=== PATIENT | female | born 1935 | race Caucasian/White ===

== ENCOUNTER 2018-08-13 23:10 | Inpatient (IN) ==
--- NOTE | 2018-08-14 03:35 | PROVIDER DOCUMENTATION ---
HPI-Neurological Disorder - General Chief Complaint: Extremity Pain Stated Complaint: leg pain Time Seen by Provider: 08/14/18 02:36 Source: patient, EMS Allergies/Adverse Reactions: Patient Allergies Allergy/AdvReac Type Severity Reaction Status Date / Time clindamycin Allergy NAUSEA/VOMI Verified 08/14/18 06:54 TING Home Medications: Home Medication List Medication Instructions Recorded Confirmed Last Taken Type Unobtainable [Home Meds 08/14/18 08/14/18 Unknown History Unobtainable] - History of Present Illness-Neuro Nature of Presenting Problem: 82 yo WF with known cerebrovascular disease, multiple strokes and SAH about 20 years ago for which she underwent aneurysm clipping. She was sitting on the toilet last night, developed prominent right leg weakness and was unable to get up. EMS was summoned by her [facility] and she was brought to the ER by EMS. She is ambulatory with a walker. Review of Systems - Adult - REVIEW OF SYSTEMS - ADULT Constitutional: reports: no symptoms reported Eyes: reports: decreased vision Ears, Nose, Mouth & Throat: reports: no symptoms reported Cardiovascular: reports: edema, heart murmur, poor circulation Respiratory: reports: cough, shortness of breath Gastrointestinal: reports: no symptoms reported Genitourinary: reports: incontinence Musculoskeletal: reports: see HPI Integumentary: reports: no symptoms reported Neurological: reports: see HPI, loss of balance, paresthesia Psychiatric: reports: no symptoms reported Endocrine: reports: no symptoms reported Hematologic/Lymphatic: reports: no symptoms reported Allergic/Immunologic: reports: no symptoms reported Past History - Adult - PAST MEDICAL HISTORY-ADULT Review of Records: reports: Old Records Reviewed, Nursing Assessment Review, Medications Reviewed Major Childhood Illnesses: reports: denies history Cardiovascular: reports: HTN Respiratory: reports: denies history Gastrointestinal: reports: denies history Obstetrical/Gynecological: reports: denies history Genitourinary: reports: denies history Musculoskeletal: reports: arthritis Neurological: reports: CVA Endocrine/Immune: reports: denies history Other Conditions: reports: cataract/glaucoma - PRIOR SURGERIES/PROCEDURES Surgical/Procedure History: reports: cholecystectomy, other (brain) - IMMUNIZATION STATUS Childhood Immunizations: See Nurse Assessment Flu Vaccine: See Nurse Assessment - FAMILY HISTORY Family History: reviewed, not pertinent Physical Exam- Neurological - Physical Exam-Neuro Initial Vital Signs Reviewed: Yes General Appearance: appears well, alert, no apparent distress Eye Exam: bilateral eye: normal inspection, PERRL, EOMI HENMT: normocephalic/atraumatic, moist mucous membranes, pharynx normal. negative: dental decay, hearing deficit Head Injury: negative: no evidence of injury Neck: non-tender, supple Respiratory: chest non-tender, lungs clear, normal breath sounds Cardiovascular: normal peripheral pulses, regular rate, rhythm, no edema, no gallop, no JVD Abdominal Exam: normal bowel sounds, non tender, soft Peripheral Pulses: radial (R): 3+, radial (L): 3+ Extremity: pedal edema (2+). 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 negative: normal speech, abnormal eye position, abnormal gag reflex, abnormal pupil position Coordination/Gait: normal finger to nose. negative: normal gait Motor/Sensory: weak motor strength RLE. negative: pronator drift (R), pronator drift (L) Neurologic: precision farming coordinator II-XII nml as tested, motor weakness (barely able to raise right leg off the bed) Integumentary: normal color, normal turgor, warm/dry Psych/Mental Status: normal mood/affect - Glascow Coma Scale Total Glascow Score: 15 Progress - PLAN OF CARE/RESULTS Progress/Plan/Lab Results: Vital Signs - 8 hr 08/13/18 23:18 08/14/18 06:22 Temperature 98.1 F 98.9 F Pulse Rate 93 H 89 Respiratory Rate 18 19 Blood Pressure 204/94 172/104 O2 Sat by Pulse Oximetry 97 98 Laboratory Results - last 24 hr 08/14/18 08/14/18 08/14/18 04:13 04:13 04:13 WBC 8.93 RBC 4.40 Hgb 12.8 Hct 41.0 MCV 93.2 MCH 29.1 MCHC 31.2 L RDW Std Deviation 14.4 Plt Count 283 MPV 10.1 Immature Gran % (Auto) 0.2 Neut % (Auto) 64.6 Lymph % (Auto) 27.9 [place] % (Auto) 6.3 Eos % (Auto) 0.7 Baso % (Auto) 0.3 Immature Gran # (Auto) 0.02 Neut # (Auto) 5.77 Lymph # (Auto) 2.49 [place]toe # (Auto) 0.56 Eos # (Auto) 0.06 Baso # (Auto) 0.03 Sodium 143 Potassium 4.0 Chloride 105 Carbon Dioxide 25 Anion Gap 13 BUN 18 Creatinine 0.8 Estimated GFR/1.73 m2 > 60 BUN/Creatinine Ratio 23 Glucose 122 H Calculated Osmolality 288 Calcium 9.7 Total Bilirubin 0.27 AST 13 ALT 11 Alkaline Phosphatase 88 Total Protein 7.9 Albumin 4.0 Globulin 3.9 Albumin/Globulin Ratio 1.0 Urine Source CLEAN CATCH Urine Color YELLOW Urine Turbidity CLEAR Urine pH 7.0 Ur Specific Lutz 1.023 Urine Protein 30 A Ur Glucose (Stick) NEGATIVE Ur Ketones (Stick) NEGATIVE Urine Blood NEGATIVE Urine Nitrite NEGATIVE Urine Bilirubin NEGATIVE Urobilinogen Dipstick NORMAL Urine Leukocytes NEGATIVE Urine WBC (Auto) <10 Urine RBC (Auto) <10 U Epithel Cells (Auto) <10 Urine Bacteria (Auto) NEGATIVE Orders Category Date Time Status CT HEAD W/O CONTRAST [CT] Stat Exams 08/14/18 03:25 Taken CBC WITH ELECTRONIC DIFF [HEME] Stat Lab 08/14/18 04:13 Completed COMPREHENSIVE METABOLIC PANEL [CHEM] Stat Lab 08/14/18 04:13 Completed UA NIMS W/REFLEX CULT [URINALYSIS] Stat Lab 08/14/18 04:13 Completed Hydrocodone/APAP 5 mg/325 mg [[place]-5] Med 08/14/18 05:03 Discontinued 1 each PO NOW ONE Result Diagrams: 08/14/18 04:13 08/14/18 04:13 - REASSESSMENT Reassessment #1 Time Reassessed: 05:07 Status: unchanged (CT noted - likely has a new ischemic cva) - CT/MRI 1 CT Study: Head Impression: Abnormal, See EMR Report (No acute changes but multiple old cva's, VPS and clip) - CONSULTS/PCP/HOSPITALIST Notification #1 *Consult/PCP/Hospitalist*: Dr Geronimo Time Discussed: 06:00 Consult Disposition: Admit Departure - Departure Date of Disposition Decision: 08/14/18 Time of Disposition Decision: 05:08 DIAGNOSIS: CVA (cerebral vascular accident) Qualifiers: CVA mechanism: unspecified Qualified Code(s): I63.9 - Cerebral infarction, unspecified Disposition: HOME 01 Certified Medical Emergency: Emergent Condition: Fair Referrals and Follow-Ups: None,PCP [Primary Care Provider] - - Critical Care Note This patient required my direct & personal management of CC.: No Attestation - Physician/ KATHRYN Attestation The physician spent face to face time with patient:: Yes Advanced Practice Provider documentation review:: Supervising physician onsite and consulted in the evaluation and care of this patient. The physician did have a face to face encounter with the patient.
[2018-08-14 04:30] LABS: URINE SOURCE CLEAN CATCH
[2018-08-14 04:33] LABS: BASO# 0.03 X1000 (0.0-0.2); BASO% 0.3 % (0.0-0.8); BILIRUBIN URINE NEGATIVE (NEGATIVE); BLOOD URINE NEGATIVE (NEGATIVE); COLOR YELLOW; EOS# 0.06 X1000 (0.0-0.7); EOS% 0.7 % (0.0-10.0); GLUCOSE URINE NEGATIVE (NEGATIVE); HEMOGLOBIN 12.8 g/dL (12.0-16.0); IMM GRAN# 0.02 X1000 (0.0-0.04); IMM GRAN% 0.2 % (0.0-0.5); KETONE URINE NEGATIVE (NEGATIVE); LEUKOCYTES URINE NEGATIVE (NEGATIVE); LYMPH# 2.49 X1000 (1.2-3.4); LYMPH% 27.9 % (20.5-51.1); MCH 29.1 PG (27-31); MCHC 31.2 g/dL (33-37); MCV 93.2 FL (81-99); MONO# 0.56 X1000 (0.11-0.59); MONO% 6.3 % (1.7-9.3); MPV 10.1 FL (7.4-10.4); NEUT# 5.77 X1000 (1.4-6.5); NEUT% 64.6 % (42.2-75.2); NITRITE URINE NEGATIVE (NEGATIVE); PLT 283 X1000 (130-400); PROTEIN URINE 30 mg/dL (NEGATIVE); RDW 14.4 % (11.5-14.5); SP GRAVITY URINE 1.023; TURBIDITY URINE CLEAR (CLEAR); UROBILINOGEN URINE NORMAL (NORMAL); WBC 8.93 X1000 (4.8-10.8)
[2018-08-14 04:35] LABS: UR EPITHELIAL CELLS <10 /HPF (<10); URINE BACTERIA NEGATIVE /HPF; URINE RBC <10 /HPF (<10); URINE WBC <10 /HPF (<10)
[2018-08-14 04:52] LABS: AGAP 13; ALKALINE PHOSPHATASE 88 U/L (32-104); BUN 18 mg/dL (8-22); CALCIUM 9.7 mg/dL (8.8-10.2); CHLORIDE 105 mmol/L (98-107); COSMO 288; CREATININE 0.8 mg/dL (0.5-0.9); ESTIMATED GFR > 60; GLUCOSE 122 mg/dL (70-104); GOT 13 U/L (10-30); GPT 11 U/L (10-36); SODIUM 143 mmol/L (136-145); TCO2 25 mmol/L (25-35); TOTAL BILIRUBIN 0.27 mg/dL (0.20-1.00); TOTAL PROTEIN 7.9 g/dL (6.3-8.3)
[2018-08-14] MEDS ORDERED: NORCO-5 PO ONE (05:03)
--- NOTE | 2018-08-14 07:27 | Diag Imaging Result Doc PS360 ---
EXAM: CT HEAD W/O CONTRAST 08/14/2018 HISTORY: acute rt leg weakness TECHNIQUE: This exam was performed using automated exposure control, adjustment of mA or kV according to patient size, and/or use of iterative reconstruction technique. COMMENT: The current examination is compared with the previous study of 02/23/2018. There is encephalomalacia in the right frontal and left posterior temporal and parietal lobes. There is extensive abnormal lucency in the white matter generally particularly in the anterior parietal and frontal regions. There is a shunt in the posterior frontal bone on the right which passes through the right hemisphere into the left lateral ventricle. Compared to the previous examination the ventricular size has not changed significantly. Encephalomalacic changes were also present previously. There has been previous right temporal craniotomy. There is an aneurysm clip above the sella on the right. There is no evidence of acute bleed or abnormal extra-axial fluid collection. IMPRESSION: Stable postsurgical changes and encephalomalacia. No evidence of acute hydrocephalus. Electronically signed by Garland Mock 08/14/2018 7:25 AM
--- NOTE | 2018-08-14 10:22 | EKG Report ---
Test Performed on : 08/14/2018 10:19:58 AM Test Reason : stroke like symptoms Blood Pressure : / mmHG Vent. Rate : 082 BPM Atrial Rate : 082 BPM P-R Int : 202 ms QRS Dur : 080 ms QT Int : 376 ms P-R-T Axes : 043 015 013 degrees QTc Int : 439 ms Normal sinus rhythm. Normal ECG When compared with ECG of 13-JUL-2018 13:00, (Unconfirmed) No significant change was found Confirmed by Richard SÁNCHEZ, Yves Rush ([id number]) on 08/15/2018 7:16:08 PM
[2018-08-14] MEDS: ASPIRIN PO SCH (10:37)
--- NOTE | 2018-08-14 10:50 | Diag Imaging Result Doc PS360 ---
EXAM: CHEST-PORTABLE 08/14/2018 HISTORY: stroke like symptoms TECHNIQUE: AP portable erect at 1024 COMMENT: The appearance of the chest has not changed significantly since 02/23/2018. IMPRESSION: Stable chest. Electronically signed by Garland Mock 08/14/2018 10:48 AM
--- NOTE | 2018-08-14 11:30 | HISTORY AND PHYSICAL ---
CHIEF COMPLAINT: Right lower extremity weakness. HISTORY OF PRESENT ILLNESS: Mrs. Shields is an 82-year-old female known to our service. She has a history of hemorrhagic stroke in the past with craniotomy and aneurysmal clipping, also with a history of hypertension, aortic stenosis, and chronic peripheral edema who comes in today with acute onset of right lower extremity weakness. She has been in her normal state of health until this morning at around 3 o'clock. She went to the bathroom with the help of her son. While she was in the bathroom, she started having complete right lower extremity weakness and subsequently called 911. She reports that she cannot lift her leg but she does have sensation. She denies any other acute focal deficits. She does have a left-sided facial droop and chronic mild expressive aphasia, but she does not report any changes in her vision, upper extremity weakness or numbness, or any other new symptoms. She denies any chest pain or shortness of breath, no fever, chills, cough, or congestion. When she got to the ER, she had a head CT done which showed old surgical changes but nothing new or acute. Her laboratory data is unremarkable. On physical exam she is not able to lift her right leg into the air, but she is able to wiggle her toes and she has strong muscle strength when pushing her foot against resistance. An MRI is contraindicated because of her history of aneurysmal clipping and she does not know if she has MRI- safe clips or not. We are going to admit her for further treatment and evaluation. PAST MEDICAL HISTORY: 1. Hemorrhagic stroke status post craniotomy and aneurysmal clipping. 2. Hypertension. 3. Chronic lower extremity edema. 4. Hyperlipidemia. 5. Chronic right-sided weakness and expressive aphasia. 6. Aortic stenosis. 7. Diastolic dysfunction. SURGICAL HISTORY: She has had craniotomy and aneurysmal clipping, cholecystectomy, tonsillectomy. SOCIAL HISTORY: She is , denies tobacco, alcohol, or drug use. FAMILY HISTORY: Noncontributory. REVIEW OF SYSTEMS: Fourteen-point review of systems obtained, found to be negative with the exception of the HPI. ALLERGIES: Clindamycin. HOME MEDICATIONS: The patient did not bring her medication list. Her son is currently out obtaining that and will be updated appropriately. PHYSICAL EXAMINATION: VITAL SIGNS: Blood pressure is 172/104, respiratory rate is 19, O2 sat 98% on room air, temperature is 98.9. GENERAL: This is an elderly but well-developed, well-nourished 82-year-old female lying in the hospital bed in no acute distress. NEUROLOGIC: She does have a facial droop on the left with mild expressive aphasia. She has no upper extremity weakness, 5/5 in both upper extremities. She is also able to push against resistance with her feet, 5/5 bilaterally. She has sensation, left greater than right. She is unable to lift her right leg into the air. She is also slightly disoriented, stating it is 2012. HEENT: Head atraumatic and normocephalic. Her pupils are equal, round and reactive to light. Oral mucosa is a bit dry. Trachea is midline. NECK: There is no JVD. CHEST: Clear to auscultation. CV: Regular rate and rhythm, S1, S2 noted. GI: Nondistended, soft. Bowel sounds are active. EXTREMITIES: Right lower extremity slightly red and warm to touch with 2+ edema bilaterally. DIAGNOSTIC DATA: Head CT shows chronic postsurgical changes, nothing acute. Chest x-ray is pending. EKG is pending. Lab work unremarkable and reviewed. ASSESSMENT AND PLAN: 1. Right lower extremity weakness: Interesting that the patient can push with her foot against resistance at a 5/5 but cannot lift her leg at all. Otherwise, she has some mild expressive aphasia, left facial droop, and some diminished sensation on the right. As stated in the HPI, an MRI is contraindicated. Will consult Neurology and make sure to continue her aspirin, statin, check hemoglobin A1c and lipid panel in the morning. Will also recheck her carotid artery ultrasound and echocardiogram. Will continue neuro checks and only treat hypertension if greater than 210/110. 2. Aortic stenosis, aware. 3. Hypertension. Please see #1. 4. Hyperlipidemia. Will continue her statin and check a lipid panel in the morning. 5. Chronic lower extremity edema. She does have some mild redness to the right lower extremity with warmth to touch. Will continue to monitor that and make sure she has compression stockings. It does not appear that there is any cellulitis at this time, but would have a low threshold to treat. 6. DVT prophylaxis with SCDs. Further recommendations to follow. Dictated by PAULINO Lenz for Sugey Mercer MD cc: PAULINO Lenz MD
[2018-08-14] MEDS ORDERED: LABETALOL IV PRN (13:28)
[2018-08-14] MEDS ORDERED: LASIX IV ONE (13:30)
[2018-08-14] MEDS ORDERED: VANCOMYCIN IV PER PHARMACY MISC SCH (13:30)
[2018-08-14] MEDS: NORCO-5 PO PRN ×3 (14:30→22:28)
--- NOTE | 2018-08-14 14:42 | CONSULTATION ---
DATE OF CONSULTATION: 08/14/2018 HISTORY OF PRESENT ILLNESS: Ms. Shields reports feeling weak with primary weakness in the right leg to the point she could not stand and could not get out of bed without help yesterday morning. She believes that has persisted without much change since then. She reports being able to get to the bathroom with help from her , although she could not move her right leg well. She did not fall or collapse. History is complicated by report of prior intracranial aneurysm managed surgically. After that, she believes she was weak on the right side, but recovered nearly to baseline. She believes that she might have had some trouble with speech then, but that is not certain. She believes she remembers some discussion about seizure around that time, but she is not certain that she ever had a seizure. She does not recall taking medicines for seizure management. She told me today that she believes her aneurysm surgery was 10 years ago. I do not have that time frame or the reported transient focal deficit documented. Workup here includes noncontrast CT of the head showing postsurgical changes and encephalomalacia, right frontal and left posterior parietal areas with midline artifact consistent with aneurysm clip. All of this appears old. I do not see evidence of acute change or bleeding. Our computer records show July, noncontrast CT of the head showing similar postsurgical changes. Description sounds like there was a ventricular shunt in place and the right frontal encephalomalacia may be about the same now. The left posterior encephalomalacia seen on current scan was reported to be present on June 2016 noncontrast scan here. I do not find any progress notes or summary reports documenting focal neurologic findings in the past. VITAL SIGNS: She has been afebrile so far this admission. She presented with systolic blood pressure 204, subsequent systolic blood pressure 172. Heart rate has been stable at 93, 89. LABORATORY: Lab shows mildly elevated blood sugar and nothing else remarkable. I do not know her home medications. We do not have urine toxicology ordered this admission. EXAMINATION: On exam, Ms. Shields is awake, alert, attentive. I observed her holding a sandwich in her left hand, chewing and swallowing without difficulty. She was able to talk to me between bites and while chewing. When not chewing, with mouth empty, her speech is not significantly dysarthric. She did well on brief bedside testing of language function. She is oriented. I did not test her cognitive function thoroughly. There is craniotomy defect and I do not find evidence of recent head injury. Neck is supple. Visual pino are full. Extraocular movements are full. The right nasolabial fold is less prominent than the left. Facial motility is good bilaterally. Tongue is midline. She can hear. Shoulder shrug is good bilaterally. Strength is normal in the arms and in the left leg. Initially, she did not raise her right leg at the hip when requested. She did demonstrate good power in the right lower leg. When I assisted her, she complained of discomfort in the right hip and thigh, but was able to maintain her right leg elevated using the hip flexors. Tone is equal in the legs. Plantar response is silent bilaterally. Reflexes are absent at the ankles bilaterally and 1+ at the wrists symmetrically. She reports equal pinprick appreciation over the legs and palms. There is a slight stocking pattern of sensory loss below the ankle bilaterally. I did not test her gait. IMPRESSION: Subjective right leg weakness, but no definite objective finding. She may have pain limiting her. There is complicated past neurologic history with aneurysm management, possibility that she had transient right hemiparesis, some evolution of the CT findings, but still no evidence of new lesion or acute neurologic event to account for her reported right leg weakness yesterday. I do not have any urgent suggestion from a neurologic standpoint. Further plans will depend on her clinical course. I would continue to treat blood pressure and, at this point, with no evidence of acute ischemic stroke, I would not permit significant hypertension. We might consider further workup later. Unfortunately, MRI is not an option, but we might repeat her CT. Might also consider evaluation of right hip. Thanks for asking Neurology to see Ms. Shields. cc: MD ELEANOR Baptiste III
[2018-08-14] MEDS ORDERED: VANCOMYCIN 1.9 GM in NS 500 ML IV ONE (16:00)
[2018-08-14] MEDS: ZOSYN 3.375 GM in NS 50 ML IV SCH ×2 (16:42→22:27)
[2018-08-14] MEDS ORDERED: VANCOMYCIN ONE (17:31)
[2018-08-14] MEDS ORDERED: [UNRECOGNIZED DRUG - OTHER] ONE (17:31)
--- NOTE | 2018-08-14 18:06 | Diag Imaging Result Doc PS360 ---
EXAM: HIP 1 VIEW RIGHT 08/14/2018 HISTORY: pain TECHNIQUE: Right hip AP portable COMMENT: The joint spaces well-preserved. There is no evidence of fracture or dislocation. IMPRESSION: No evidence of acute bony disease. Electronically signed by Garland Mock 08/14/2018 6:03 PM
--- NOTE | 2018-08-14 19:04 | ECHO REPORT ---
ORDER DATE: 08/14/2018 INDICATION: An 82-year-old female with stroke-like symptoms, aortic stenosis. M-MODE MEASUREMENTS: Left ventricle end diastole: 4.0. Left ventricle end systole: 2.6. Posterior wall: 1.2. Interventricular septum: 1.2. Left atrium: 4.5. Aortic root: 2.7. SUMMARY OF 2-DIMENSIONAL IMAGIN. The left ventricle is hyperdynamic. Ejection fraction estimated at 75% to 80%. No wall motion abnormality noted. 2. There is a mild degree of concentric LVH. 3. The aortic valve is calcified with restricted opening. Maximum gradient across the valve is 62 mmHg. Mean gradient is 33 mmHg. The ratio of LVOT VTI to aortic valve VTI is about 0.3, indicating that this is not a case of severe stenosis. Valve area is 1.2 cm2. This would be consistent with moderate aortic stenosis. Color flow mapping is unremarkable. 4. The mitral valve shows calcification of the annulus. Color flow mapping unremarkable. 5. Pulsed wave Doppler of mitral inflow shows reversal of the E/A ratio with ratio of 0.6. 6. Tissue Doppler of septal and lateral mitral annulus shows a fusion of the E prime and the A prime wave. It is difficult to sort them out. The patient is somewhat tachycardic. 7. The tricuspid valve shows a trivial degree of regurgitation. Pulmonary pressure is 32 mmHg.. 8. The pulmonic valve is unremarkable. 9. There is no pericardial effusion. No mass, no thrombus. SUMMARY: This study shows: 1. Hyperdynamic left ventricle. 2. Moderate aortic stenosis with mean gradient 33 mmHg, valve area 1.2 cm2. 3. Pulmonary pressure of 32 mmHg. 4. Diastolic function cannot be properly evaluated in this case. cc: MD Chao Hutchinson CRNP
[2018-08-14] MEDS: MIRALAX PO SCH (22:28)
[2018-08-14] MEDS: LIPITOR PO SCH (22:28)
[2018-08-15] MEDS: ZOSYN 3.375 GM in NS 50 ML IV SCH ×3 (04:04→16:28)
[2018-08-15] MEDS: NORCO-5 PO PRN ×5 (04:05→20:10)
[2018-08-15 06:15] LABS: HEMATOCRIT 36.8 % (37.0-47.0); HEMOGLOBIN 11.6 g/dL (12.0-16.0); MCHC 31.5 g/dL (33-37); MCV 95.1 FL (81-99); MPV 9.9 FL (7.4-10.4); RBC 3.87 XMIL (4.2-5.4); RDW 14.5 % (11.5-14.5); WBC 13.33 X1000 (4.8-10.8)
[2018-08-15] MEDS: PRILOSEC PO SCH (06:15)
[2018-08-15 06:37] LABS: HEMOGLOBIN A1C 6.1 % (4.8-6.0)
[2018-08-15] MEDS: COZAAR PO SCH (08:23)
[2018-08-15] MEDS: COREG PO SCH (08:23)
[2018-08-15] MEDS: LASIX PO SCH (08:23)
[2018-08-15] MEDS: ASPIRIN PO SCH (08:23)
[2018-08-15] MEDS: MIRALAX PO SCH ×2 (08:26→20:20)
[2018-08-15] MEDS: LOVENOX SUBQ SCH (08:26)
[2018-08-15] MEDS ORDERED: ASPIRIN PO SCH (09:00)
[2018-08-15 09:06] LABS: AGAP 15; BUN 19 mg/dL (8-22); CALCIUM 8.8 mg/dL (8.8-10.2); CHLORIDE 104 mmol/L (98-107); COSMO 289; CREATININE 0.8 mg/dL (0.5-0.9); ESTIMATED GFR > 60; GLUCOSE 125 mg/dL (70-104); POTASSIUM 3.8 mmol/L (3.5-5.1); SODIUM 143 mmol/L (136-145); TCO2 24 mmol/L (25-35)
--- NOTE | 2018-08-15 10:26 | Carotid Study ---
DATE: 08/14/2018 PROCEDURE: Bilateral duplex and color flow imaging of the carotid arteries performed using a [employer] Vivid E9 ultrasound system with a 9L-D transducer. REFERRING PHYSICIAN: Dr. Mercer from the emergency department. INTERPRETING PHYSICIAN: Sharita Diaz MD. TECH: Jethro Ibarra Adri. INDICATIONS: Transient ischemic attack. OBSERVED DATA RIGHT LEFT Brachial Blood Pressure Carotid Pulse Bruits: Carotid/Sub DIAGRAM OF ULTRASOUND IMAGING R L RIGHT INT EXT INT EXT LEFT Max (cm/s) Max (cm/s) Subclavian 101/4 Subclavian 95/5 CCA Proximal 136/8 CCA Proximal 99/13 CCA Distal 97/12 CCA Distal 95/14 Bulb 101/14 Bulb 104/10 ICA Proximal 81/10 ICA Proximal 108/25 ICA Mid 88/13 ICA Mid 84/18 ICA Distal 72/11 ICA Distal 89/15 ECA 124/0 ECA 149/10 Vertebral 49/9 Vertebral 32/6 ICA/CCA Ratio 0.65 ICA/CCA Ratio 1.09 % Stenosis 0-39 % Stenosis 0-39 PHYSICIAN INTERPRETATION: There is calcific atherosclerosis involving the bilateral common carotid arteries and their branches, but there is no evidence of a hemodynamically significant lesion in either carotid system. cc: MD Chao Ley CRNP
--- NOTE | 2018-08-15 10:49 | Extremity Venous Study ---
PROCEDURE NAME: Venous U/S Right Leg - 08/14/2018 PROCEDURE PERFORMED: Right lower extremity venous duplex and color flow imaging study using the [employer] Vivid E9 ultrasound system with a 9 L-D transducer. REFERRING PHYSICIAN: Dr. Mercer. PATIENT PROFILE: An 82-year-old female. CIVIL LABORATORY TECHNICIAN: Meaghan Chacon RVT. INDICATIONS: Swelling and redness involving the right lower extremity, suggestive of deep venous thrombosis. FINDINGS: The right common femoral vein and its branches, deep and superficial femoral veins were satisfactorily imaged. They had flow through them and were compressible. Right popliteal vein and the deep veins below the right knee were all compressible and had flow through them. The superficial veins of the right lower extremity were compressible throughout their length. INTERPRETATION: No evidence of acute deep or superficial venous thrombosis of the right lower extremity. cc: MD Chao Ley CRNP
--- NOTE | 2018-08-15 12:35 | PROGRESS NOTE ---
DATE: 08/15/2018 LOCATION: Room 426. SUBJECTIVE: Ms. Shields initially reported no improvement in her right leg strength today. After some discussion, she told me that she thinks the right leg may be a little bit stronger today. OBJECTIVE: On exam, she is awake and alert. She has good power in both legs. She initially did not raise her right leg as well as the left but with distraction and repeated testing, she was able to raise her right leg, use the right hip flexors, maintain her right leg and foot elevated off the bed for several seconds. Limb tone is symmetric in the legs. Workup includes carotid ultrasound showing no hemodynamically significant stenosis bilaterally. Venous study in the right leg shows no evidence of acute deep or superficial thrombosis. Right hip x-ray was unremarkable. ASSESSMENT AND PLAN: I do not have any new thoughts from a Neurology standpoint. I do not think she has had an acute neurologic event to explain her right leg problems. I hope she will continue to improve. I agree with plans for physical therapy and I encouraged her to participate vigorously. Thanks for asking Neurology to see Ms. Shields. cc: MD ELEANOR Baptiste III
--- NOTE | 2018-08-15 15:10 | PROGRESS NOTE ---
DATE: 08/15/2018 SUBJECTIVE: The patient is resting comfortably in bed. No acute events noted overnight. OBJECTIVE: Vital Signs: Temperature 97.9 degrees, blood pressure 115/39, heart rate 72, respirations 16, O2 saturation 99% on room air. General: This is a morbidly obese female, lying in bed in no acute distress. Heart: S1, S2 normal. Lungs: Clear to auscultation bilaterally. Abdomen: Positive bowel sounds. Soft, obese, nontender, nondistended. Extremities: 2+ edema with erythema. Neurologic: The patient is alert and oriented x3. LABS: White blood cell count 13, hemoglobin 11, hematocrit 36, platelets 240. Sodium 143, potassium 3.8, chloride 104, CO2 24. BUN 19, creatinine 0.8, glucose 125. A1c 6.1. ASSESSMENT AND PLAN: 1. Right lower extremity weakness. The patient does not show any evidence of a stroke. We will continue to work with the patient with physical therapy. 2. Bilateral lower extremity cellulitis. We will continue with antibiotic therapy. We will also ask that the patient keep her legs elevated to help with the edema. 3. Aortic stenosis. Aware. 4. History of hemorrhagic stroke, status post craniotomy with aneurysmal clipping. Aware. 5. Newly diagnosed diabetes mellitus type 2. The patient has a hemoglobin A1c of 6.1. We will start the patient on a diabetic diet and also start metformin. We will also consult with the dietitian for diabetic teaching. 6. Deep vein thrombosis prophylaxis. Continue on Lovenox. 7. Disposition: The patient may require home health upon discharge. cc: Sugey Mercer MD
[2018-08-15] MEDS: GLUCOPHAGE PO SCH (17:49)
[2018-08-15] MEDS: LIPITOR PO SCH (20:09)
[2018-08-15] MEDS: KEFZOL 2 GM/D5W 2 GM/50 ML IVPB IV SCH (20:10)
[2018-08-16] MEDS: NORCO-5 PO PRN ×5 (00:38→16:55)
[2018-08-16] MEDS ORDERED: VANCOMYCIN 1.65 GM in NS 250 ML IV SCH (04:00)
[2018-08-16] MEDS: KEFZOL 2 GM/D5W 2 GM/50 ML IVPB IV SCH (04:19)
--- NOTE | 2018-08-16 04:43 | INFECTIOUS DISEASE CONSULT REP ---
DATE: 08/15/2018 CONCLUSION: The patient has leg cellulitis. The left leg has almost completely cleared of cellulitis, and the right leg still does have some distally. RECOMMENDATIONS: I have discontinued vancomycin and Zosyn, and instead put the patient on Ancef. Also, I have ordered that the foot of the bed should be elevated with the manual gatch continuously. DISCUSSION: The patient was unable to give much of a history. She has had a hemorrhagic stroke, and she is post craniotomy and aneurysmal clipping. Apparently, she had developed a complete weakness on her right side, and she was brought to the emergency room in an ambulance. The patient's CBC shows a white count of 13,330, hemoglobin 11.6, and platelet count of 240,000. Creatinine is 0.8. GFR is greater than 60. Liver function studies are normal. Urinalysis showed no white cells or bacteria. Blood cultures are pending. CT scan of the head showed stable postsurgical changes and encephalomalacia. The patient's white count did go up to 13,000 today. I am not exactly sure why it did. PAST MEDICAL HISTORY: 1. Positive for hemorrhagic stroke, status post craniotomy and aneurysmal clipping. 2. Hypertension. 3. Chronic bilateral leg edema. 4. Hyperlipidemia. 5. The patient does have some residual from her hemorrhagic stroke. She did move her right arm fairly well. It was only her right leg that she could barely move. She did carry on a conversation with me. 6. Aortic stenosis. 7. Diastolic dysfunction. PAST SURGICAL HISTORY: Positive for craniotomy and aneurysmal clipping, cholecystectomy, and tonsillectomy. SOCIAL HISTORY: The patient is . She does not smoke cigarettes, drink alcoholic beverages, or abuse drugs. FAMILY HISTORY: Said to be noncontributory. REVIEW OF SYSTEMS: I was unable to get a review of systems from the patient tonight. ALLERGIES: The patient is allergic to clindamycin. HOME MEDICATIONS: Includes aspirin, Lipitor, Coreg, Nexium, Lasix, hydrocodone, losartan, and MiraLAX. PHYSICAL EXAMINATION: Vital Signs: Temperature is 97.9 degrees, pulse 71, respirations 16, blood pressure 141/55. The patient weighs 206 pounds. General: This is an obese, elderly female. She is in no acute distress. Head, Eyes, Ears, Nose, and Throat: She can hear my spoken words and see near objects. She does not have any white coating on her tongue. Neck: No meningismus. Lungs: Clear to auscultation. Cardiovascular: Regular heart rate, with a systolic murmur. Abdomen: Soft and nontender. Extremities: Both legs are edematous. The left leg erythema is almost completely gone. The right leg does have some erythema remaining in the distal leg. Neurologic: The patient can move her arms and left leg. She has weakness in the right leg. The patient was slow to answer some questions, but she did seem to be able to carry on a coherent conversation. Integument: No rash noted. Thank you for the consult. cc: Shayne Rosario MD
[2018-08-16] MEDS: PRILOSEC PO SCH (06:27)
[2018-08-16 06:41] LABS: AGAP 9; BUN 18 mg/dL (8-22); CALCIUM 8.4 mg/dL (8.8-10.2); CHLORIDE 105 mmol/L (98-107); COSMO 287; CREATININE 0.8 mg/dL (0.5-0.9); ESTIMATED GFR > 60; GLUCOSE 98 mg/dL (70-104); PHOSPHORUS 2.7 mg/dL (2.7-4.5); POTASSIUM 3.4 mmol/L (3.5-5.1); SODIUM 143 mmol/L (136-145); TCO2 29 mmol/L (25-35)
[2018-08-16 06:49] LABS: HEMATOCRIT 37.3 % (37.0-47.0); HEMOGLOBIN 11.5 g/dL (12.0-16.0); MCH 29.7 PG (27-31); MCHC 30.8 g/dL (33-37); MCV 96.4 FL (81-99); MPV 10.3 FL (7.4-10.4); RBC 3.87 XMIL (4.2-5.4); RDW 14.6 % (11.5-14.5); WBC 7.92 X1000 (4.8-10.8)
[2018-08-16] MEDS: COZAAR PO SCH (08:24)
[2018-08-16] MEDS: GLUCOPHAGE PO SCH ×2 (08:24→16:55)
[2018-08-16] MEDS: COREG PO SCH (08:25)
[2018-08-16] MEDS: MIRALAX PO SCH (08:25)
[2018-08-16] MEDS: LOVENOX SUBQ SCH (08:25)
[2018-08-16] MEDS: LASIX PO SCH (08:25)
[2018-08-16] MEDS: ASPIRIN PO SCH (08:25)
[2018-08-16] MEDS ORDERED: MIRALAX PO PRN (10:25)
[2018-08-16] MEDS: KEFLEX PO SCH ×2 (12:27→19:56)
--- NOTE | 2018-08-16 14:21 | PROGRESS NOTE ---
DATE: 08/16/2018 SUBJECTIVE: The patient is resting comfortably in bed. She states that she feels a lot better however she states that she is having difficulty with ambulation. OBJECTIVE: Vital Signs: Temperature 98.2 degrees, blood pressure 133/53, heart rate 70, respirations 12, O2 saturation 97% on room air. General: This is a chronically ill-appearing elderly female lying in bed in no acute distress. Heart: S1, S2 normal. Regular rate and rhythm. Lungs: Clear to auscultation bilaterally. Abdomen: Positive bowel sounds. Soft, nontender, nondistended. Extremities: No edema. Decreased erythema in both lower extremities. Neuro: The patient is alert and oriented x3. LABS: Potassium 3.4, calcium 8.4, phos 2.7, mag 2. ASSESSMENT AND PLAN: 1. Generalized weakness. Will put in a request for inpatient rehab placement for the patient, will continue with physical therapy while hospitalized. 2. Bilateral lower extremity cellulitis improved. The patient is going to be started on oral antibiotics as per Dr. Rosario. 3. Aortic stenosis. Aware. 4. History of hemorrhagic stroke status post craniotomy with aneurysmal clipping. Aware. 5. Diabetes mellitus type 2. Continue on metformin and diabetic diet. 6. Deep vein thrombosis prophylaxis. Continue on Lovenox. 7. Disposition. The patient will need inpatient rehab placement. [employer] has been consulted to assist with this. cc: Sugey Mercer MD MTDD
--- NOTE | 2018-08-16 14:52 | INFECTIOUS DISEASE PROGRESS NO ---
DATE: 08/16/2018 PRESENT ILLNESS: The patient has leg cellulitis. The left leg cellulitis has cleared. The right leg cellulitis continues to improve. MEDICATIONS: The patient is receiving Ancef 2 g IV every 8 hours. PHYSICAL EXAMINATION: Vital Signs: Temperature is 98.3, pulse 77, respirations 12, blood pressure 138/55. Generally, this is an elderly obese female. She is in no acute distress. Head/eyes/ears/nose/throat: She can hear my spoken words and see near objects. Neck: No meningismus. Lungs Clear to auscultation. Cardiovascular: Heart rate is regular. There is a systolic murmur. Abdomen is soft and not tender. Extremities: The left leg is not erythematous, and it is less edematous than it was earlier. The right leg erythema is fading. Also, the leg is also less edematous than it previously was. Neurologic: The patient is alert. The patient can move her arms and left leg and the right leg is very weak. LABORATORY AND X-RAY: CBC shows a white count of 7920, hemoglobin 11.5, and platelet count 223,000. Creatinine is 0.8. GFR is greater than 60. Urinalysis shows no white cells or bacteria. Blood cultures are negative. ASSESSMENT AND PLAN: The patient's cellulitis is improving. I have switched the patient from Ancef to Keflex 500 mg p.o. every 8 hours. I think that from Infectious Disease point of view, the patient can be discharged to a rehab facility. I would suggest treatment with Keflex for another 5 days and also I would suggest leg elevation as much as possible. COMORBIDITIES: She is elderly. She also is obese and has bilateral leg edema. cc: Shayne Rosario MD
[2018-08-16] MEDS: LIPITOR PO SCH ×2 (19:56→20:02)
[2018-08-17] MEDS: NORCO-5 PO PRN ×6 (00:56→22:26)
[2018-08-17] MEDS: KEFLEX PO SCH ×3 (05:10→20:33)
[2018-08-17] MEDS: PRILOSEC PO SCH ×2 (05:11→06:05)
[2018-08-17 06:45] LABS: HEMATOCRIT 37.3 % (37.0-47.0); HEMOGLOBIN 11.5 g/dL (12.0-16.0); MCH 29.7 PG (27-31); MCHC 30.8 g/dL (33-37); MCV 96.4 FL (81-99); MPV 10.3 FL (7.4-10.4); RBC 3.87 XMIL (4.2-5.4); RDW 14.4 % (11.5-14.5); WBC 8.81 X1000 (4.8-10.8)
[2018-08-17 07:03] LABS: AGAP 11; BUN 21 mg/dL (8-22); CALCIUM 8.8 mg/dL (8.8-10.2); CHLORIDE 105 mmol/L (98-107); COSMO 290; CREATININE 0.8 mg/dL (0.5-0.9); ESTIMATED GFR > 60; GLUCOSE 101 mg/dL (70-104); POTASSIUM 3.6 mmol/L (3.5-5.1); SODIUM 144 mmol/L (136-145); TCO2 28 mmol/L (25-35)
[2018-08-17] MEDS: GLUCOPHAGE PO SCH ×2 (07:34→16:48)
[2018-08-17] MEDS: COREG PO SCH (08:47)
[2018-08-17] MEDS: LASIX PO SCH (08:47)
[2018-08-17] MEDS: ASPIRIN PO SCH (08:47)
[2018-08-17] MEDS: COZAAR PO SCH (08:48)
[2018-08-17] MEDS: LOVENOX SUBQ SCH (08:48)
--- NOTE | 2018-08-17 13:58 | PROGRESS NOTE ---
DATE: 08/17/2018 SUBJECTIVE: The patient is resting comfortably in bed. She has no complaints. OBJECTIVE: Vital Signs: Temperature 98.2, blood pressure 152/54, heart rate 73, respirations 16, O2 saturation 93% on room air. General: This is an elderly female lying in bed in no acute distress. Heart: S1, S2 normal. Regular rate and rhythm. Lungs: Clear to auscultation bilaterally. No wheezing. No rales. No rhonchi. Abdomen: Positive bowel sounds. Soft, nontender, nondistended. Extremities: No edema. No cyanosis. Neurologic: The patient is alert and oriented x3. LABORATORY DATA: Reviewed. ASSESSMENT AND PLAN: 1. Generalized weakness. The patient will continue with physical therapy while hospitalized. 2. Bilateral lower extremity cellulitis, improved. Continue on Keflex. 3. Diabetes mellitus, type 2. Continue on metformin. 4. History of hemorrhagic stroke, status post craniotomy with aneurysmal clipping, aware. 5. Aortic stenosis, aware. 6. Deep vein thrombosis prophylaxis. The patient is on Lovenox. DISPOSITION: [employer]ant has been consulted for inpatient rehab placement. cc: Sugey Mercer MD
[2018-08-17] MEDS: LIPITOR PO SCH (20:33)
[2018-08-18] MEDS: NORCO-5 PO PRN ×5 (02:22→21:44)
[2018-08-18] MEDS: KEFLEX PO SCH ×3 (06:02→21:44)
[2018-08-18] MEDS: PRILOSEC PO SCH (06:02)
[2018-08-18 06:48] LABS: HEMATOCRIT 36.3 % (37.0-47.0); HEMOGLOBIN 11.2 g/dL (12.0-16.0); MCH 29.6 PG (27-31); MCHC 30.9 g/dL (33-37); MPV 10.1 FL (7.4-10.4); RBC 3.78 XMIL (4.2-5.4); RDW 14.4 % (11.5-14.5); WBC 6.87 X1000 (4.8-10.8)
[2018-08-18 07:13] LABS: AGAP 10; BUN 18 mg/dL (8-22); CALCIUM 8.7 mg/dL (8.8-10.2); CHLORIDE 104 mmol/L (98-107); COSMO 287; CREATININE 0.6 mg/dL (0.5-0.9); ESTIMATED GFR > 60; GLUCOSE 102 mg/dL (70-104); POTASSIUM 3.7 mmol/L (3.5-5.1); SODIUM 143 mmol/L (136-145); TCO2 29 mmol/L (25-35)
[2018-08-18] MEDS: GLUCOPHAGE PO SCH ×2 (07:25→17:34)
[2018-08-18] MEDS: COZAAR PO SCH (08:57)
[2018-08-18] MEDS: LASIX PO SCH (08:58)
[2018-08-18] MEDS: LOVENOX SUBQ SCH (08:58)
[2018-08-18] MEDS: ASPIRIN PO SCH (08:58)
[2018-08-18] MEDS: COREG PO SCH (08:58)
--- NOTE | 2018-08-18 17:50 | PROGRESS NOTE ---
DATE: 08/18/2018 SUBJECTIVE: The patient is resting comfortably in bed. She states that she had diarrhea yesterday but it seems to have slowed down today. OBJECTIVE: Vital Signs: Temperature 97.9 degrees, blood pressure 140/48, heart rate 68, respirations 16, O2 saturation 99% on room air. General: This is a elderly female lying in bed in no acute distress. Heart: S1, S2 normal. Regular rate and rhythm. Lungs: Clear to auscultation bilaterally. No wheezing, no rales, no rhonchi. Abdomen: Positive bowel sounds. Soft, nontender, nondistended. Extremities: No edema, no cyanosis. Neuro: The patient is alert and oriented x3. LABS: Reviewed. ASSESSMENT AND PLAN: 1. Generalized weakness. Continue with physical therapy. The patient will need inpatient rehab placement. 2. Bilateral lower extremity cellulitis. Improved. Continue on Keflex. 3. Diabetes mellitus type 2. Continue on metformin. 4. History of hemorrhagic stroke status post craniotomy with aneurysmal clipping. Aware. 5. Aortic stenosis. Aware. 6. Deep vein thrombosis prophylaxis. The patient is on Lovenox. 7. Disposition. Document Scanner has been consulted for inpatient rehab placement for the patient. cc: Sugey Mercer MD
[2018-08-18] MEDS: LIPITOR PO SCH (21:44)
[2018-08-19] MEDS: NORCO-5 PO PRN ×5 (06:12→23:38)
[2018-08-19] MEDS: KEFLEX PO SCH ×3 (06:16→20:07)
[2018-08-19] MEDS: PRILOSEC PO SCH (06:17)
[2018-08-19 06:29] LABS: HEMATOCRIT 36.1 % (37.0-47.0); HEMOGLOBIN 11.2 g/dL (12.0-16.0); MCH 29.6 PG (27-31); MCV 95.3 FL (81-99); MPV 10.8 FL (7.4-10.4); RBC 3.79 XMIL (4.2-5.4); RDW 14.3 % (11.5-14.5); WBC 7.73 X1000 (4.8-10.8)
[2018-08-19 07:25] LABS: AGAP 12; BUN 20 mg/dL (8-22); CALCIUM 9.2 mg/dL (8.8-10.2); CHLORIDE 103 mmol/L (98-107); COSMO 282; CREATININE 0.7 mg/dL (0.5-0.9); ESTIMATED GFR > 60; GLUCOSE 91 mg/dL (70-104); POTASSIUM 3.8 mmol/L (3.5-5.1); SODIUM 140 mmol/L (136-145); TCO2 25 mmol/L (25-35)
[2018-08-19] MEDS: LOVENOX SUBQ SCH (09:29)
[2018-08-19] MEDS: GLUCOPHAGE PO SCH ×2 (09:31→16:28)
[2018-08-19] MEDS: COZAAR PO SCH (09:31)
[2018-08-19] MEDS: ASPIRIN PO SCH (09:31)
[2018-08-19] MEDS: COREG PO SCH (09:31)
[2018-08-19] MEDS: LASIX PO SCH (09:31)
--- NOTE | 2018-08-19 17:55 | PROGRESS NOTE ---
DATE: 08/19/2018 SUBJECTIVE: The patient is resting comfortably in bed. No acute events noted overnight. OBJECTIVE: Vital Signs: Temperature 98.4 degrees, blood pressure 135/48, heart rate 73, respirations 14, O2 saturation 95% on room air. General: This is a chronically ill-appearing elderly female lying in bed, in no acute distress. Heart: S1 and S2 normal. Regular rate and rhythm. Lungs: Clear to auscultation bilaterally. Abdomen: Positive bowel sounds. Soft, nontender, nondistended. Extremities: No edema. No cyanosis. Neurologic: The patient is alert and oriented x3. LABORATORY DATA: White blood cell count 7.7, hemoglobin 11, hematocrit 36, platelets 207,000. Sodium 140, potassium 3.8, chloride 103, CO2 25, BUN 20, creatinine 0.7, glucose 91. ASSESSMENT AND PLAN: 1. Generalized weakness. Continue with physical therapy. 2. Bilateral lower extremity cellulitis. Improved. Continue on Keflex. 3. Diabetes mellitus type 2. Continue metformin. 4. Aortic stenosis. Aware. 5. Hypertension. Controlled. 6. History of hemorrhagic stroke, status post craniotomy with aneurysmal clipping. Aware. 7. Deep vein thrombosis prophylaxis. The patient is on Lovenox. 8. Disposition. The patient is medically stable for discharge to inpatient rehab once a bed is available. cc: Sugey Mercer MD
[2018-08-19] MEDS: LIPITOR PO SCH (20:07)
--- NOTE | 2018-08-19 21:40 | INFECTIOUS DISEASE PROGRESS NO ---
DATE: 08/19/2018 PRESENT ILLNESS: Ms. Shields has a right lower extremity cellulitis which is improving. The left lower extremity cellulitis has cleared. MEDICATIONS: Today is day 3 of Keflex 500 mg by mouth every 8 hours. PHYSICAL EXAMINATION: Vital Signs: Temperature is 98.1 degrees, pulse rate 73 , respiratory rate 14, blood pressure 133/50, O2 saturation 96% on room air. General: This is an elderly obese female. She is lying in the bed currently in no acute distress. HEENT: Atraumatic, normocephalic. Oral mucous membranes are pink and moist. Conjunctivae are pink. Neck: Supple. Trachea is midline. Cardiovascular: Heart rate and rhythm are regular. Normal sinus rhythm on the monitor. Systolic murmur noted. Pedal and radial pulses are palpable bilaterally. There is some mild fading erythema noted to the right lower extremity. Abdomen: Soft, obese and nontender. Bowel sounds are active. Neurologic: She is awake, alert and oriented with left-sided hemiparesis. LABORATORY AND X-RAY: Today her white count is 7.73, hemoglobin 11.2, platelet count 207,000, creatinine is 0.7, estimated GFR is greater than 60. No imaging reports today. ASSESSMENT AND PLAN: Ms. Shields has cellulitis to her lower extremities which is improving. The plan is for her to go to rehab. At this point Dr. Rosario suggests another 5 days of treatment using Keflex 500 mg by mouth every 8 hours, and continue to elevate her lower extremities as much as possible. COMORBIDITIES: Include that she is elderly and obese with aortic stenosis and history of hemorrhagic stroke with left-sided hemiparesis. Dictated by PAULINO Stein for Shayne Rosario MD This chart was documented by, PAULINO Stein and accurately reflects the services performed, treatment plan and medical decisions as attested by the providers signature Shayne Rosario MD. cc: MD ELEANOR Lunsford
[2018-08-20] MEDS: PRILOSEC PO SCH ×2 (05:24→13:04)
[2018-08-20] MEDS: KEFLEX PO SCH ×3 (05:25→20:09)
[2018-08-20 06:43] LABS: HEMATOCRIT 34.9 % (37.0-47.0); HEMOGLOBIN 10.8 g/dL (12.0-16.0); MCH 29.6 PG (27-31); MCHC 30.9 g/dL (33-37); MCV 95.6 FL (81-99); MPV 10.3 FL (7.4-10.4); RBC 3.65 XMIL (4.2-5.4); RDW 14.4 % (11.5-14.5); WBC 6.56 X1000 (4.8-10.8)
[2018-08-20 06:57] LABS: AGAP 9; BUN 25 mg/dL (8-22); CALCIUM 8.3 mg/dL (8.8-10.2); CHLORIDE 102 mmol/L (98-107); COSMO 282; CREATININE 0.8 mg/dL (0.5-0.9); ESTIMATED GFR > 60; GLUCOSE 96 mg/dL (70-104); POTASSIUM 3.9 mmol/L (3.5-5.1); SODIUM 139 mmol/L (136-145); TCO2 28 mmol/L (25-35)
[2018-08-20] MEDS: LASIX PO SCH (08:43)
[2018-08-20] MEDS: GLUCOPHAGE PO SCH ×2 (08:43→18:15)
[2018-08-20] MEDS: COZAAR PO SCH (08:43)
[2018-08-20] MEDS: ASPIRIN PO SCH (08:43)
[2018-08-20] MEDS: COREG PO SCH (08:43)
[2018-08-20] MEDS: NORCO-5 PO PRN ×3 (10:35→20:08)
[2018-08-20] MEDS: LOVENOX SUBQ SCH (10:35)
--- NOTE | 2018-08-20 12:39 | PROGRESS NOTE ---
DATE: 08/20/2018 SUBJECTIVE: Right lower extremity weakness. An 82-year-old female, known to our service. She has a history of hemorrhagic stroke in the past, craniotomy and aneurysmal clipping. Also history of hypertension, aortic stenosis, chronic peripheral edema. Came in with acute onset of right lower extremity weakness. She has been in her normal state of health until the morning around 3 o'clock. She went to the bathroom with help of her son. While she is in the bathroom started having complete right lower extremity weakness and subsequently called 911. She could not lift her right leg but did have sensation. Denies any other acute deficits. PAST MEDICAL HISTORY: 1. Hemorrhagic stroke status post craniotomy and aneurysm clipping. 2. Hypertension. 3. Chronic lower extremity edema. 4. Hyperlipidemia. 5. Chronic right-sided weakness and expressive aphasia. 6. Aortic stenosis. 7. Diastolic dysfunction. OBJECTIVE: Today she says her right leg is doing a little better. Her right arm is good. Her speech is clear. She thinks her speech is better. I will go ahead and get speech therapy to evaluate.Vital Signs: Temperature 98.7 degrees, pulse 85, respirations 14, blood pressure 152/58. Pupils are equal and round. Lungs: Clear in all lung pino. Cardiovascular: Regular rhythm and rate without murmur or S3. Abdomen: Soft. Skin: Warm, dry. LABORATORY AND IMAGING: Blood sugars 97, 99, 105,126. EKG done this morning shows normal sinus rhythm, normal EKG. ASSESSMENT AND PLAN: 1. Generalized weakness. Continue physical therapy. 2. Bilateral lower extremity cellulitis, which is improved. She is on Keflex. Still a little tender in her legs but the redness has dissipated. 3. Diabetes mellitus type 2. Blood sugars under good control. She is on metformin. 4. Aortic stenosis aware. 5. Hypertension, controlled. 6. History of hemorrhagic stroke status post craniotomy, and aneurysm clipping. 7. Right leg weakness which seems to be improving. She would like to go to physical therapy. I think we are looking at possible [facility] in [place]. 8. Deep venous thrombosis prophylaxis. Continue. 9. She is on gastrointestinal prophylaxis as well. She is on omeprazole 40 mg a day. REVIEW OF HER ORDERS: She is on Lipitor 20 mg at bedtime, aspirin 81 mg daily, Coreg 12.5 daily, Keflex 500 mg p.o. q.6h q.8 hours, Lovenox 40 mg subcutaneous q.24 hours, Lasix 40 mg a day, hydrocodone 5 one q.4 hours p.r.n., Cozaar 100 mg a day. Glucophage 500 mg b.i.d., Prilosec 40 mg a day, MiraLAX 17 g twice a day. cc: Gerry Lerma MD
--- NOTE | 2018-08-20 14:30 | INFECTIOUS DISEASE PROGRESS NO ---
DATE: 08/20/2018 PRESENT ILLNESS: The patient is admitted to the hospital with bilateral leg cellulitis. The left leg cellulitis has cleared and the right leg is almost completely cleared. MEDICATIONS: This is the 4th day of treatment with Keflex. PHYSICAL EXAMINATION: Vital Signs: Temperature is 98.7 degrees, pulse 85, respirations 14, blood pressure 152/58. General: This is an elderly obese female. She is in no acute distress. Head/eyes/ears/nose/throat: She can hear my spoken words and see near objects. She does not have any white patches on her tongue. Lungs: Clear to auscultation. Cardiovascular: Regular heart rate. Abdomen: Soft and nontender. Extremities: The patient's left leg is not erythematous. The patient's right leg has much less erythema and also it is much less swollen. LAB AND X-RAY: CBC today shows a white count of 6560, hemoglobin 10.8 and platelet count 215,000. Creatinine is 0.8. GFR is greater than 60. There is no new radiographic study today. ASSESSMENT AND PLAN: The patient has cellulitis, which is improving. I have told the patient to elevate her legs as much as possible and I plan on continuing Keflex probably for another couple days to clear up the cellulitis in the right leg. COMORBIDITIES: The patient is elderly and obese. She has a history of a left-sided hemiparesis secondary to a stroke. cc: Shayne Rosario MD
[2018-08-20] MEDS: LIPITOR PO SCH (20:09)
[2018-08-21] MEDS: NORCO-5 PO PRN ×5 (05:35→22:57)
[2018-08-21] MEDS: PRILOSEC PO SCH ×2 (05:36→06:22)
[2018-08-21] MEDS: KEFLEX PO SCH ×3 (05:36→21:03)
[2018-08-21] MEDS: ASPIRIN PO SCH (08:28)
[2018-08-21] MEDS: LASIX PO SCH (08:28)
[2018-08-21] MEDS: COREG PO SCH (08:28)
[2018-08-21] MEDS: GLUCOPHAGE PO SCH ×2 (08:29→17:12)
[2018-08-21] MEDS: LOVENOX SUBQ SCH (08:29)
[2018-08-21] MEDS: COZAAR PO SCH (08:29)
[2018-08-21] MEDS ORDERED: ZOFRAN IV PRN (11:47)
[2018-08-21] MEDS: LIPITOR PO SCH (21:03)
--- NOTE | 2018-08-22 04:32 | INFECTIOUS DISEASE PROGRESS NO ---
DATE: 08/21/2018 SUBJECTIVE: Patient has bilateral leg cellulitis, which is clearing well. MEDICATIONS: This is the 5th day of treatment with Keflex. OBJECTIVE: Vital Signs: Temperature is 98 degrees, pulse 94, respirations 17, blood pressure 125/70. General: This is an elderly, obese female. She is in no acute distress. Head/eyes/ears/nose/throat: She can hear my spoken words and see near objects. She does not have any white patches in her mouth. She does not have any ulcers in her mouth. Neck: No meningismus. Lungs: Clear to auscultation. Cardiovascular: Heart rate is regular. Extremities: Both legs are not erythematous, and there is much less edema as well. LAB AND X-RAY: There is no CBC for today. The creatinine is 0.8. GFR is greater than 60. ASSESSMENT AND PLAN: Patient has leg cellulitis. Our plan is to continue Keflex for possibly another 1 to 3 days. Also, I have emphasized to patient to elevate her legs as much as possible. COMORBIDITIES: The patient is elderly and obese. She also has a left-sided hemiparesis secondary to a stroke. cc: Shayne Rosario MD
[2018-08-22] MEDS: KEFLEX PO SCH ×2 (05:25→12:05)
[2018-08-22] MEDS: NORCO-5 PO PRN ×3 (05:25→15:21)
[2018-08-22] MEDS: PRILOSEC PO SCH ×2 (05:27→08:09)
[2018-08-22] MEDS: LASIX PO SCH (10:14)
[2018-08-22] MEDS: GLUCOPHAGE PO SCH (10:14)
[2018-08-22] MEDS: COZAAR PO SCH (10:14)
[2018-08-22] MEDS: COREG PO SCH (10:15)
[2018-08-22] MEDS: LOVENOX SUBQ SCH (10:15)
[2018-08-22] MEDS: ASPIRIN PO SCH (10:15)
--- NOTE | 2018-08-22 10:15 | PROGRESS NOTE ---
DATE: 08/22/2018 SUBJECTIVE: Ms. Shields is doing much better and swallowing and eating well, breathing comfortably. OBJECTIVE: Vital signs: Temp is 98.0, pulse 75, respirations 16, blood pressure 136/58. HEENT: Pupils are equal and reactive. Lungs: Clear in all lung pino. Cardiovascular: Regular rhythm and rate without murmur or S3. Abdomen: Soft. Skin: Warm and dry. Urine output is 700 mL. ASSESSMENT AND PLAN: 1. Bilateral leg cellulitis which is clearing well. This is going to be day 6 of the Keflex. 2. Generalized weakness. Continue physical therapy. 3. Diabetes mellitus type 2. Blood sugar is under good control. 4. Aortic stenosis, aware. 5. Hypertension which is controlled. 6. History of hemorrhagic stroke status post craniotomy and aneurysm clipping. 7. Right leg weakness which seems to be improving. Continue physical therapy. REVIEW OF ORDERS: I do not see any changes. Continue physical therapy. Social Service looking for placement. cc: Gerry Lerma MD
[2018-08-22 12:03] VITALS: BP 123/59
--- NOTE | 2018-08-22 12:44 | DISCHARGE SUMMARY ---
ADMISSION DATE: 08/14/2018 DISCHARGE DATE: 08/22/2018 Who presented on 08/14/2018 with right lower extremity weakness. 82-year-old with no primary care physician. She is known to our service. She had a history of hemorrhagic stroke in the past with craniotomy and aneurysmal clipping, also a history of hypertension, aortic stenosis, chronic peripheral edema. Came in on 08/14/2018 with right lower extremity weakness. She was in her normal state of health until about 3 o'clock in the morning and went to the bathroom with the help of her son, while she was in the bathroom was having complete right lower extremity weakness and subsequently called 911. Could not lift her leg. She does have sensation though, in that leg. Denied any other acute focal deficits. Did have left-sided facial droop and chronic mild expressive aphasia. She did not report any change in her vision, upper extremity weakness or numbness, or any new symptoms. Denied any chest pain, shortness of breath, fever, chills, cough, or congestion. In the emergency room, CT of the head was done that showed old surgical changes, but nothing new. Laboratory data was unremarkable. On physical exam, unable to lift her right leg into the air, but she was able to wiggle her toes, had strong muscle strength with pushing her foot against resistance. MRI was contraindicated because of history of aneurysm clipping and not knowing if she has MRI safe clips or not. PAST MEDICAL HISTORY: Once again reviewed and: 1. Hemorrhagic stroke, status post craniotomy and aneurysm clipping. 2. Hypertension. 3. Chronic lower extremity edema. 4. Hyperlipidemia. 5. Chronic right-sided weakness and expressive aphasia. 6. Aortic stenosis. 7. Diastolic dysfunction. ADMISSION DIAGNOSES: 1. Right lower extremity weakness, concern about left-sided event/cerebrovascular accident. She did have some mild expressive aphasia, left facial droop, diminished sensation on the right. MRI was contraindicated. 2. She does have some aortic stenosis. Aware. 3. Hypertension. 4. Hyperlipidemia. 5. Chronic lower extremity edema, which felt most of this was chronic venous insufficiency. Hip x-ray on , no evidence of any fracture. DR. Coyne was consulted. His impression was right-sided weakness, but no definite objective finding, and she may have pain limiting her. This is complicated by her past medical history with aneurysm management. Possibly she had transient right hemiparesis, some evolution of the CT findings, but still no evidence of new lesion or acute neurologic event to account for her left weakness. We consulted DR. Rosario, Infectious Disease. She did appear to have some irritation and erythema, and felt she might have some cellulitis in the right leg, but the left leg completely cleared of cellulitis and the right leg still had some distally, so discontinued the vancomycin and Zosyn which was started at the beginning, put her on some Ancef. Leg seemed to continue to improve. She showed improvement with physical therapy. Facial droop resolved. Her speech returned to normal and looked to see if she would be eligible to go to rehab, from which she would benefit for improving her strength in her leg and ambulation. Blood sugars were followed with her history of diabetes and remained under fairly good control, and felt she was ready go to rehab on 08/24/2018. DISCHARGE MEDICATIONS: Will be aspirin 81 mg a day, Lipitor 20 mg a day, Coreg 12.5 mg a day. She can stop her Keflex. Her cellulitis is improved. Lasix 40 mg a day. She was getting [place] 5 q.4 hours p.r.n., and Cozaar 100 mg daily, Glucophage 500 mg b.i.d., Prilosec 40 mg a day, MiraLAX 17 g b.i.d. p.r.n. Plan to discharge her to [facility]. cc: Gerry Lerma MD
== END 2018-08-22 15:57 | DRG 948 ==
LOC: ED 23:10 → SUATTDRO 08-14 08:57 → EDIPHOLD 08-14 08:57 → 4N 08-14 18:13
PROVIDERS: ATTEND Emergency Medicine
CPT/HCPCS: 36415; 51701; 70450; 71010; 71045; 73500; 73501; 80048; 80053; 80061; 81001; 82948; 83036; 83721; 83735; 84100; 85025; 85027; 85651; 86140; 87040; 87324; 87449; 92523; 93005; 93306; 93880; 93971; 96365; 96366; 96367; 96375; 97110; 97162; 97530; 99285; A9270; C8929; J0690; J1650; J1940; J2405; J2543; J3370; J7040; P9612; Q9957; XXXXX